=== PATIENT | female | born 1960 | race Caucasian/White ===

== ENCOUNTER 2020-04-02 14:17 | Outpatient (CLI) | payer OTHER, SELFPAY ==
[2020-04-02 14:54] LABS: Basophils Absolute Auto 0.1 K/mm3 (0.0-0.1); Basophils Percent Auto 0.5 % (0.2-1.2); Eosinophils Absolute Auto 0.2 K/mm3 (0-0.3); Eosinophils Percent Auto 2.4 % (0-4.4); Hematocrit 43.1 % (37.0-47.0); Hemoglobin 14.5 g/dL (12.0-15.0); Immature Granulocyte Absolute 0.03 K/mm3 (0.00-0.031); Immature Granulocyte Percent A 0.3 % (0-0.5); Lymphocytes Absolute Auto 3.25 K/mm3 (0.9-3.2); Lymphocytes Percent Auto 33.4 % (18.3-44.2); Mean Corpuscular HGB Conc 33.6 g/dl (32-36); Mean Corpuscular Hemoglobin 29.8 pg (26-34); Mean Corpuscular Volume 88.7 fl (80-100); Monocytes Absolute Auto 0.7 K/mm3 (0.1-0.6); Monocytes Percent Auto 7.5 % (2.6-8.5); Neutrophils Absolute Auto 5.4 K/mm3 (1.3-6.7); Neutrophils Percent Auto 55.9 % (45.5-73.1); Platelet Count Result 285 k/mm3 (150-375); Red Blood Count 4.86 M/mm3 (4.2-5.4); Red Cell Distribution Width 13.5 % (11.5-14.5); White Blood Count 9.7 K/mm3 (4.5-10.0)
[2020-04-02 15:11] LABS: Alanine Aminotransferase 31 U/L (4-35); Albumin Level 4.5 g/dL (3.5-5.1); Alkaline Phosphatase 74 U/L (38-126); Anion Gap 7 mmol/L (8-16); Aspartate Amino Transferase 32 U/L (14-36); Bilirubin,Total 0.4 mg/dL (0.2-1.3); Blood Urea Nitrogen 18 mg/dL (7-17); Calcium 9.3 mg/dL (8.4-10.2); Carbon Dioxide 27 mmol/L (22-30); Chloride 104 mmol/L (98-107); Cholesterol 254 mg/dL (0-200); Estimated Glomerular Filt Rate 51; Glucose 94 mg/dL (65-105); HDL Direct 70 mg/dL; Potassium 4.3 mmol/L (3.4-5.0); Sodium 138 mmol/L (137-145); Triglycerides 170 mg/dL (<150)
[2020-04-02 15:22] LABS: LDL Cholesterol Direct 141 mg/dL
[2020-04-02 21:18] LABS: Free T4 Free Thyroxine Reflex 1.27 ng/dL (0.78-2.19)
[2020-04-02 22:05] LABS: Total Triiodothyronine (T3) 1.31 NG/ML (0.97-1.69)
== END 2020-04-02 14:18 | disposition home or self-care (01) ==
LOC: ANHLAB 14:20
PROVIDERS: PCP Family Medicine; Visit Provider Family Medicine
DX: E78.5 Hyperlipidemia, unspecified (principal); E03.9 Hypothyroidism, unspecified; R53.83 Other fatigue
CPT/HCPCS: 36415; 80053; 80061; 84439; 84443; 84480; 85025

== ENCOUNTER 2021-04-14 11:12 | Outpatient (CLI) | payer OTHER, SELFPAY ==
[2021-04-14 11:50] LABS: Alanine Aminotransferase 32 U/L (4-35); Albumin Level 4.8 g/dL (3.5-5.1); Alkaline Phosphatase 76 U/L (38-126); Anion Gap 7 mmol/L (8-16); Aspartate Amino Transferase 31 U/L (14-36); Bilirubin,Total 0.5 mg/dL (0.2-1.3); Blood Urea Nitrogen 14 mg/dL (7-17); Calcium 9.6 mg/dL (8.4-10.2); Carbon Dioxide 31 mmol/L (22-30); Chloride 101 mmol/L (98-107); Estimated Glomerular Filt Rate > 60; Glucose 96 mg/dL (65-110); Potassium 4.2 mmol/L (3.4-5.0); Sodium 139 mmol/L (137-145)
== END 2021-04-14 11:13 | disposition home or self-care (01) ==
PROVIDERS: PCP Family Medicine; Visit Provider Family Medicine
DX: E03.9 Hypothyroidism, unspecified (principal); I10 Essential (primary) hypertension
CPT/HCPCS: 36415; 80053; 84443

== ENCOUNTER 2021-10-03 01:30 | Day surgery (SDC) | payer OTHER, SELFPAY ==
[2021-09-24 12:11] VITALS: BMI 35.6
--- NOTE | 2021-10-02 12:40 | P.HP_ITS ---
History of Present Illness History of Present Illness Consent: Risks, benefits, and alternatives have been discussed and questions answered. Patient agrees to proceed with procedure. Chief complaint: hx of colon polyps Narrative: Jennifer Jj is a 61 year old female Referred for colon cancer screening. She had 4 polyps removed about 8 years ago. None of these were advanced adenomas Review of Systems Review of Systems: All systems reviewed & are unremarkable except as noted in HPI and below PMFSH Past Medical History Medical History (Updated 10/03/21 @ 10:02 by Petey Fernández DO) Colon cancer screening Compression neuropathy Essential (primary) hypertension Hypothyroidism (acquired) Obesity (BMI 35.0-39.9 without comorbidity) [place] (obstructive sleep apnea) Family History Family History Father Diabetes mellitus, Onset Age: 76 Hypertension, Onset Age: 76 Malignant neoplasm of prostate Mother Hypertension Family history of malignant neoplasm of uterus, Onset Age: 70 Other Family history of thyroid disease Social History Social History Smoking packs per day: 0.5 Smoking cigarettes per day: 10.0 Years smoked: 40 Smoking pack-years: 20.00 Smoking status: Current every day smoker Tobacco type: cigarettes Alcohol intake: current Alcohol use details: 5 drinks per month Living arrangements: with family Spiritual care concerns: No Meds Home Medications and Allergies Home Medications Medication Instructions Recorded Confirmed Type modafinil 200 mg tablet 200 mg PO QAM #30 tablet 07/14/21 10/03/21 Rx diphenhydramine HCl 50 mg PO HS PRN 09/24/21 10/03/21 History fluoxetine 20 mg PO DAILY 09/24/21 10/03/21 History tbyop-pe-1-dkf-buy-qgoxjsq-ast 1 cap PO DAILY 09/24/21 10/03/21 History [Maximum Red Krill [place]-3] levothyroxine 150 mcg PO DAILY 09/24/21 10/03/21 History multivit with min-folic acid 1 tablet PO DAILY 09/24/21 10/03/21 History [Adult One Daily Multivitamin] triamterene-hydrochlorothiazid 1 tablet PO DAILY 09/24/21 10/03/21 History Allergies Allergy/AdvReac Type Severity Reaction Status Date / Time calcium polycarbophil Allergy Unknown Asthma Verified 10/03/21 10:08 [Konsyl Fiber] psyllium Allergy Unknown Asthma Verified 10/03/21 10:08 Exam Resp: Auscultation: clear to auscultation bilaterally Cardio: Rate: regular rate Rhythm: regular rhythm GI: GI Palp: Yes Soft to palpation and No Tenderness to palpation present (GI) Assessment and Plan Assessment and plan (1) Colon cancer screening: Code(s): Z12.11 - Encounter for screening for malignant neoplasm of colon Status: Acute Assessment and Plan: Colonoscopy with possible biopsy or polypectomy or cautery or injection of substances.
--- NOTE | 2021-10-03 10:01 | P.PNAN_ITS ---
Anes - Initial Pre Proc Eval Procedure: Operation Date: 10/03/21 11:00 Proposed Procedures p Screening Colonoscopy - Justin Gonzalez MD Date/Time: 10/03/21 10:01 Surgeon: Justin Gonzalez MD Pre Op Diagnosis: hx of colon polyps Patient Data Age: 61 Gender: F Height: 1.68 m Weight: 100 kg Allergies Allergy/AdvReac Type Severity Reaction Status Date / Time calcium polycarbophil Allergy Unknown Asthma Verified 10/03/21 10:08 [Konsyl Fiber] psyllium Allergy Unknown Asthma Verified 10/03/21 10:08 Home Medications Medication Instructions Recorded Confirmed Type modafinil 200 mg tablet 200 mg PO QAM #30 tablet 07/14/21 10/03/21 Rx diphenhydramine HCl 50 mg PO HS PRN 09/24/21 10/03/21 History fluoxetine 20 mg PO DAILY 09/24/21 10/03/21 History khclb-vz-1-ghd-ifs-pjbylvu-ast 1 cap PO DAILY 09/24/21 10/03/21 History [Maximum Red Krill [place]-3] levothyroxine 150 mcg PO DAILY 09/24/21 10/03/21 History multivit with min-folic acid 1 tablet PO DAILY 09/24/21 10/03/21 History [Adult One Daily Multivitamin] triamterene-hydrochlorothiazid 1 tablet PO DAILY 09/24/21 10/03/21 History Patient hx anesthesia problems: none Family hx anesthesia problems: none Results Review: All pre-operative results and documents have been reviewed as part of the pre-operative evaluation. [facility] Past Medical History Medical History (Updated 10/03/21 @ 10:02 by Petey Fernández DO) Colon cancer screening Compression neuropathy Essential (primary) hypertension Hypothyroidism (acquired) Obesity (BMI 35.0-39.9 without comorbidity) [place] (obstructive sleep apnea) Family History Family History Father Diabetes mellitus, Onset Age: 76 Hypertension, Onset Age: 76 Malignant neoplasm of prostate Mother Hypertension Family history of malignant neoplasm of uterus, Onset Age: 70 Other Family history of thyroid disease Social History Social History Smoking packs per day: 0.5 Smoking cigarettes per day: 10.0 Years smoked: 40 Smoking pack-years: 20.00 Smoking status: Current every day smoker Tobacco type: cigarettes Alcohol intake: current Alcohol use details: 5 drinks per month Living arrangements: with family Spiritual care concerns: No Anes - Eval Final PreProcedure Day of Procedure 10/03/21 10:01 Patient weight: obese Heart: regular rate and rhythm Lungs: clear to auscultation and normal air movement Airway: Mallampati scale class II Neurological: alert and oriented Last oral intake: >/= 8 hours ASA classification: III Emergent: no Anesthetic plan: proceed Anesthesia type and monitoring: general GIVS and standard monitoring Results Review: All pre-operative results and documents have been reviewed as part of the pre-operative evaluation. Informed Consent: The patient's anesthetic plan and its attendant risks and benefits were discussed with the patient/family/POA. Questions were solicited and answers provided to the satisfaction of the patient/family/POA.
[2021-10-03 10:10] VITALS: BP 138/76; PULSE 63; RESP 18; TEMP 36.3; O2SAT 98; BMI 36.8
[2021-10-03] MEDS: LACTATED RINGERS 1,000 ML 150 ML IV CONT (10:14)
[2021-10-03 11:13] VITALS: BP 104/61; PULSE 58; RESP 22; O2SAT 98
[2021-10-03 11:23] VITALS: BP 107/65; PULSE 55; RESP 20; O2SAT 99
[2021-10-03 11:33] VITALS: BP 124/84; PULSE 60; RESP 18; O2SAT 99
== END 2021-10-03 11:50 | disposition home or self-care (01) ==
PROVIDERS: PCP Family Medicine; Visit Provider Internal Medicine Gastroenterology
PROC: 0DJD8ZZ Inspection of Lower Intestinal Tract, Via Natural or Artificial Opening Endoscopic (ICD-10-PCS; CPT 45378; principal; 2021-10-03 11:00)
DX: Z12.11 Encounter for screening for malignant neoplasm of colon (principal); K63.5 Polyp of colon; K62.1 Rectal polyp; K57.30 Diverticulosis of large intestine without perforation or abscess without bleeding; E03.9 Hypothyroidism, unspecified; F17.210 Nicotine dependence, cigarettes, uncomplicated; E66.9 Obesity, unspecified; Z68.36 Body mass index [BMI] 36.0-36.9, adult; G58.8 Other specified mononeuropathies; I10 Essential (primary) hypertension; G47.33 Obstructive sleep apnea (adult) (pediatric)
CPT/HCPCS: 45385; 88305; J2704; J7120

== ENCOUNTER 2022-03-17 16:05 | Emergency (ER) | payer OTHER, SELFPAY ==
--- NOTE | 2022-03-17 16:06 | ED.EYEPROB ---
HPI - Eye Problem General Chief complaint: Eye Problems Stated complaint: EYE Time Seen by Provider: 03/17/22 16:13 Source: patient and RN notes reviewed Mode of arrival: ambulatory Limitations: no limitations History of Present Illness HPI Narrative: 62-year-old female presents with concern for right eyelid swelling and itching. She reports 3-day history of symptoms, denies injury or trauma. Denies eye pain, vision changes, drainage from the eye. Reports its itchy. Reports she always has itchy eyes. She reports she takes Benadryl nightly. She denies further pain or swelling around the eye, eye pressure. She denies fever, body aches, chills, sweats chief complaint: other (Eyelid swelling) Related Data Home Medications Medication Instructions Recorded Confirmed diphenhydramine HCl 50 mg tablet 50 mg PO HS PRN Sleep 09/24/21 10/03/21 fluoxetine 20 mg capsule 20 mg PO DAILY 09/24/21 10/03/21 krill 300 mg-omega-3 90 mg-dha 27 1 cap PO DAILY 09/24/21 10/03/21 mg-epa 45 wu-bkzoiai-zrrxbno capsule (Maximum Red Krill [place]-3) levothyroxine 150 mcg tablet 150 mcg PO DAILY 09/24/21 10/03/21 multivitamin with minerals-folic 1 tablet PO DAILY 09/24/21 10/03/21 acid 0.4 mg tablet triamterene 37.5 1 tablet PO DAILY 09/24/21 10/03/21 mg-hydrochlorothiazide 25 mg tablet Allergies Allergy/AdvReac Type Severity Reaction Status Date / Time calcium polycarbophil Allergy Unknown Asthma Verified 10/17/21 10:05 [Konsyl Fiber] psyllium Allergy Unknown Asthma Verified 10/17/21 10:05 Review of Systems Review of Systems: CONSTITUTIONAL: Denies malaise, chills, sweats, or fever. EYES: Denies visual changes. Denies redness, irritation, discharge. Reports right upper eyelid swelling and itchiness. Denies pain, redness, swelling in the forehead, taoism, cheek ENT: Denies rhinorrhea, congestion, sinus pain, otalgia or sore throat. SKIN: Denies rash or itching. NEUROLOGIC: Denies numbness, weakness, or headache. PSYCHIATRIC: Denies anxiety or depression. All systems reviewed & are unremarkable except as noted in HPI and below PMFSH Past Medical History Medical History Colon cancer screening Compression neuropathy Essential (primary) hypertension Hypothyroidism (acquired) Obesity (BMI 35.0-39.9 without comorbidity) [place] (obstructive sleep apnea) Family History Family History Father Diabetes mellitus, Onset Age: 76 Hypertension, Onset Age: 76 Malignant neoplasm of prostate Mother Hypertension Family history of malignant neoplasm of uterus, Onset Age: 70 Other Family history of thyroid disease Social History Social History Smoking packs per day: 0.5 Smoking cigarettes per day: 10.0 Years smoked: 40 Smoking pack-years: 20.00 Smoking status: Current every day smoker Tobacco type: cigarettes Alcohol intake: current Alcohol use details: 5 drinks per month Spiritual care concerns: No Comments At time of signature, agree with nursing past medical, surgical, social and family history. There is no relevant family history pertinent to the presenting complaint Exam Narrative: GENERAL: Well-appearing, well-nourished, and in no acute distress. HEAD: Normocephalic, atraumatic. EYES: PERRLA, sclera clear, and EOMI. No nystagmus. Right upper conjunctivae mildly injected, with mild soft eyelid edema, right lower eyelid unremarkable. Left upper and lower eyelid unremarkable, no periorbital edema noted no drainage noted. No tenderness noted around the ENT: Nares clear, no rhinorrhea or epistaxis. Mucous membranes moist. NECK: Supple. CHEST: No respiratory distress. Speaks in full sentences. HEART: Regular rate and rhythm. SKIN: Warm, dry, no visible rash. NEURO: Alert and oriented x3. PSYCH: Normal mood and affect
[2022-03-17 16:12] VITALS: BP 120/73; PULSE 78; RESP 16; TEMP 36.6; O2SAT 99
== END 2022-03-17 16:28 | disposition home or self-care (01) ==
PROVIDERS: Emergency Provider Nurse Practitioner; PCP Family Medicine
DX: H02.841 Edema of right upper eyelid (principal); I10 Essential (primary) hypertension; E03.9 Hypothyroidism, unspecified; G47.30 Sleep apnea, unspecified; E66.9 Obesity, unspecified; Z68.37 Body mass index [BMI] 37.0-37.9, adult; F17.210 Nicotine dependence, cigarettes, uncomplicated
CPT/HCPCS: 99213; G0463

== ENCOUNTER 2023-02-20 09:00 | Outpatient (CLI) | payer OTHER, SELFPAY ==
[2023-02-20 10:14] LABS: Alanine Aminotransferase 33 U/L (6-35); Albumin Level 4.2 g/dL (3.5-5.1); Alkaline Phosphatase 74 U/L (38-126); Anion Gap 6 mmol/L (8-16); Aspartate Amino Transferase 32 U/L (14-36); Bilirubin,Total 0.5 mg/dL (0.2-1.3); Blood Urea Nitrogen 15 mg/dL (7-17); Carbon Dioxide 29 mmol/L (22-30); Chloride 105 mmol/L (98-107); Cholesterol 247 mg/dL (0-200); Estimated Glomerular Filt Rate > 60; Glucose 95 mg/dL (65-110); HDL Direct 51 mg/dL; Sodium 140 mmol/L (137-145); Triglycerides 129 mg/dL (<150)
[2023-02-20 10:25] LABS: LDL Cholesterol Direct 149 mg/dL
[2023-02-20 11:06] LABS: Thyroid Stimulating Hormone Reflex 0.574 uIU/mL (0.465-4.68)
== END 2023-02-20 09:01 | disposition home or self-care (01) ==
PROVIDERS: PCP Family Medicine; Visit Provider Family Medicine
DX: E78.5 Hyperlipidemia, unspecified (principal)
CPT/HCPCS: 36415; 80053; 80061; 84443

== ENCOUNTER 2023-03-18 12:15 | Outpatient (CLI) | payer OTHER, SELFPAY ==
--- NOTE | ~2023-03-18 | MM_ITS ---
EXAMINATION: MM screening dipak BI w kaleb HISTORY: Screening mammogram TECHNIQUE: Craniocaudal and mediolateral oblique 3-D tomosynthesis images were obtained and synthetic 2-D images were generated. CAD analysis was submitted and interpreted. COMPARISON: October 28, 2017 bilateral screening mammogram BREAST PARENCHYMAL COMPOSITION: The breasts are almost entirely fatty. FINDINGS: There is no evidence of suspicious mass, calcification, or architectural distortion to sugg est malignancy in either breast. There has been no suspicious interval change. IMPRESSION: 1. No mammographic evidence of malignancy. 2. Recommend routine screening mammography in one year. BI-RADS Category 1: Negative Reviewed, dictated and finalized at location A.
== END 2023-03-18 12:16 | disposition home or self-care (01) ==
PROVIDERS: PCP Family Medicine; Visit Provider Family Medicine
DX: Z12.31 Encounter for screening mammogram for malignant neoplasm of breast (principal)
CPT/HCPCS: 77063; 77067

== ENCOUNTER 2024-01-05 15:49 | Outpatient (CLI) | payer BC, SELFPAY ==
[2024-01-05 19:48] LABS: Thyroid Stimulating Hormone 0.682 uIU/mL (0.465-4.680)
== END 2024-01-05 15:50 | disposition home or self-care (01) ==
LOC: ANHGOSHLAB 15:50
PROVIDERS: PCP Family Medicine; Visit Provider Family Medicine
DX: E03.9 Hypothyroidism, unspecified (principal)
CPT/HCPCS: 36415; 84443

== ENCOUNTER 2024-09-22 13:56 | Outpatient (CLI) | payer BC, SELFPAY ==
[2024-09-22 19:17] LABS: Thyroid Stimulating Hormone 0.282 uIU/mL (0.465-4.680)
== END 2024-09-22 13:57 | disposition home or self-care (01) ==
LOC: ANHGOSHLAB 13:57
PROVIDERS: PCP Family Medicine; Visit Provider Family Medicine
DX: E03.9 Hypothyroidism, unspecified (principal)
CPT/HCPCS: 36415; 84443

== ENCOUNTER 2025-04-10 10:32 | Outpatient (CLI) | payer BC, SELFPAY ==
[2025-04-10 13:15] LABS: Alanine Aminotransferase 30 U/L (6-35); Albumin Level 4.3 g/dL (3.5-5.1); Alkaline Phosphatase 77 U/L (38-126); Anion Gap 3 mmol/L (4-12); Aspartate Amino Transferase 52 U/L (14-36); Bilirubin,Total 0.6 mg/dL (0.2-1.3); Blood Urea Nitrogen 19 mg/dL (7-17); Calcium 9.3 mg/dL (8.4-10.2); Carbon Dioxide 31 mmol/L (22-30); Chloride 104 mmol/L (98-107); Cholesterol 243 mg/dL (0-200); Estimated Glomerular Filt Rate > 60; Glucose 97 mg/dL (65-110); HDL Direct 52 mg/dL; Potassium 5.0 mmol/L (3.4-5.0); Sodium 138 mmol/L (137-145); Total Protein 8.2 g/dL (6.3-8.2); Triglycerides 143 mg/dL (<150)
[2025-04-10 13:41] LABS: Thyroid Stimulating Hormone Reflex 1.330 uIU/mL (0.465-4.68)
[2025-04-10 14:03] LABS: Hemoglobin A1C 6.0 % (<5.7)
== END 2025-04-10 10:33 | disposition home or self-care (01) ==
LOC: ANHGOSHLAB 10:33
PROVIDERS: PCP Family Medicine; Visit Provider Family Medicine
DX: E78.5 Hyperlipidemia, unspecified (principal); E03.9 Hypothyroidism, unspecified; I10 Essential (primary) hypertension
CPT/HCPCS: 36415; 80053; 80061; 83036; 84443